=== PATIENT | female | born 1940 | race Caucasian/White ===

== ENCOUNTER → 2021-06-15 | Outpatient (CLI) | payer MEDICARE ==
[2021-03-05 15:00] VITALS: BP 135/73
[~2021-06-15] MED LIST: AMLO-310 PO; ASPI-630 PO; ATEN100T PO; ATOR40TA59 PO; CHOL10004 PO; CINN500C2 PO; CLOP75TA PO; CYAN25008 PO; FAMO20TA5 PO; FERR240T2 PO; GABA300C18 PO; GABA300S PO; GLIP2.5T4 PO; HYDR12.58 PO; L.AC1CAP6 PO; MAGNESIUM-VIT1 EACH PO; METF10007 PO; METO50TA4 PO; MULT-647 PO; MULT-766 PO; OMEP20CA16 PO; TRAN4TAB23 PO; TRIA1CAP3 PO; [UNRECOGNIZED DRUG - CODE] PO
--- NOTE | 2021-06-15 13:20 | KCIC ---
EXAM: Abdomen sonogram. HISTORY: Liver lesion on CT. TECHNIQUE: Sonographic imaging of the abdomen was performed. COMPARISON: CT dated 03/04/2021. FINDINGS: The liver is normal in size. No hepatic lesion is seen. The gallbladder is elongated. There is no cholelithiasis or cholecystitis. The common bile duct is normal in caliber. The right kidney i s unremarkable. The pancreas and inferior vena cava are unremarkable. The aorta is partially obscured due to bowel gas. IMPRESSION: 1. No sonographic correlate for a hypodense lesion within the left hepatic lobe demonstrated on the p rior CT. This remains indeterminant. Liver protocol CT or MRI can be performed for characterization i f there is clinical concern. 2. No acute sonographic finding. Electronically signed by: Mary Lou Pastrana MD (06/15/2021 1:18 PM) [id number]
== END ==
LOC: KCIC US 12:29
PROVIDERS: ATTEND Internal Medicine
DX: K76.9 Liver disease, unspecified (principal)
CPT/HCPCS: 76705

== ENCOUNTER → 2021-07-07 | Outpatient (CLI) | payer MEDICARE ==
[2021-03-05 15:00] VITALS: BP 135/73
[~2021-07-07] MED LIST changes: +GADOTERATE 7.5 MMOL/15ML VIAL. IVP ONE
--- NOTE | 2021-07-07 13:48 | KCIC ---
EXAMINATION: MRI abdomen with and without IV contrast. INDICATION:80 years, Female, liver lesion seen on CT exam. Further evaluation. TECHNIQUE: Multiplanar multisequence MRI of the abdomen was performed. COMPARISON: CT dated 03/04/2021. FINDINGS: The study is degraded by motion artifact. LOWER CHEST: Subsegmental atelectasis in bibasilar lungs. ABDOMEN: Normal size and morphology of the liver with homogeneous enhancement. No steatosis or iron deposition . There is a 1.4 cm T2 hyperintense lesion in subcapsular hepatic segment 2, corresponds to previousl y questioned lesion on CT exam. This lesion is probably enhanced on 5 minutes delayed images. No benny esponding diffusion restriction. No suspicious focal hepatic lesion. Unremarkable gallbladder. Prominent central and extrahepatic ducts with smooth tapering distally, the maximum diameter of the common bile duct measures 0.7 cm, no choledocholithiasis or obstructing mass , findings may be secondary to mass effect of the adjacent duodenal diverticulum. Unremarkable spleen . Splenule adjacent to the spleen. Normal bright T1 signal intensity of the pancreas with homogeneous enhancement. No adrenal nodule. No hydronephrosis in either kidney. 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 Additional, simple-appearing left parapelvic renal cysts. Nonspecific bilateral perinephric fat stranding. Moderate size hiatal hernia. No bowel dilatation. Uncomplicated duodenal diverticulum. No lymphadenop athy in the abdomen in size criteria. Redemonstrated diffuse atherosclerotic disease of the abdominal aorta without dilatation or narrowing. Mesenteric arteries and portal vein are patent. 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 No ascites. MUSCULOSKELETAL: No suspicious osseous lesion. IMPRESSION: Partially degraded study by motion artifact. 1. The 1.4 cm subcapsular hepatic segment 2 lesion corresponds to previously questioned lesion on CT exam is likely representing simple cyst or hemangioma. 2. Similar moderate size hiatal hernia. 3. Mildly complex 0.0 cm left renal cortical cyst with few thin internal septations, consistent with Bosniak type II cyst. No follow-up is required. Electronically signed by: Melissa Watson MD (07/07/2021 1:46 PM) [id number]
== END ==
LOC: KCIC MRI 10:46
PROVIDERS: ATTEND Internal Medicine
DX: K76.9 Liver disease, unspecified (principal); K44.9 Diaphragmatic hernia without obstruction or gangrene; N28.1 Cyst of kidney, acquired; K57.10 Diverticulosis of small intestine without perforation or abscess without bleeding; I63.81 Other cerebral infarction due to occlusion or stenosis of small artery
CPT/HCPCS: 74183; A9575